=== PATIENT | male | born 1995 | race Caucasian/White ===

== ENCOUNTER 2021-09-17 18:51 | Emergency (ER) | payer MEDICAID, SELFPAY ==
[~2021-09-17] VITALS: Ht 177.8 cm; Wt 81.6 kg
--- NOTE | 2021-09-17 19:06 | NUR ---
CALLED PT NOW ANSWER AT THIS TIME
[2021-09-17 20:32] VITALS: BP 125/67
--- NOTE | 2021-09-17 22:23 | NUR ---
PATIENT CLEARED FOR DISCHARGE. PT UNWILLING TO TAKE OR SIGN DISCHARGE INSTRUCTIONS. COVID SWAB COLELCTED AND SENT TO LAB.
== END 2021-09-17 22:23 | disposition home or self-care (01) ==
LOC: MED 18:51
DX: R43.8 Other disturbances of smell and taste (principal); Z20.822 Contact with and (suspected) exposure to COVID-19
CPT/HCPCS: 99283; U0003